=== PATIENT | male | born 1950 | race Caucasian/White ===

== ENCOUNTER → 2016-05-16 | Outpatient (CLI) | payer OTHER | END | disposition home or self-care (01) | LOC: GMAH 11:33 | PROVIDERS: ATTEND Family Medicine | DX: Z00.00 Encounter for general adult medical examination without abnormal findings (principal); Z12.5 Encounter for screening for malignant neoplasm of prostate ==

== ENCOUNTER → 2017-03-15 | Outpatient (CLI) | payer MEDICARE ==
--- NOTE | 2017-03-18 11:49 | CT ---
EXAM DESCRIPTION: Abdoment/Pelvis w/o Contrast CLINICAL HISTORY: 66 years Male, DIARRHEA COMPARISON: None. TECHNIQUE: Transaxial images were obtained without intravenous or oral contrast media. Sagittal and coronal reconstruction was performed.This exam was performed according to our departmental dose-optimization program, which includes automated exposure control, adjustment of the mA and/or kV according to patient size and/or use of iterative reconstruction technique. FINDINGS: Multiple pulmonary nodules are observed in the lung bases. The largest nodule is seen in the lingula measuring 1.49 cm in diameter. No pleural fluid is seen. Multiple low-density foci are observed throughout both lobes of liver consistent with metastatic disease. The liver is enlarged. The spleen is normal in appearance. No adrenal masses are detected. The pancreas is normal in appearance. A probable cyst is observed in the lower pole of the patient's left kidney. No hydronephrosis solid mass or calcification is detected. The appendix is identified and is normal in appearance. The exam does reveal thickening of the sigmoid colon. With metastatic disease this is worrisome for the possibility of neoplasm. No free fluid is observed in the pelvis. No inguinal region abnormality is detected. Mild degenerative changes are observed in the lumbar spine. IMPRESSION: 1. Multiple pulmonary nodules are observed in the lung bases consistent with metastatic disease. 2. Low-density foci are observed throughout both lobes the liver consistent with metastatic disease. 3. Diffuse thickening of the sigmoid colon is observed and is worrisome for a primary neoplasm the colon. 4. Probable simple cyst is observed in the lower pole the left kidney. Electronically signed by: Carlos Pretty MD 03/18/2017 11:48 AM RN DOCUMENT IMPROVEMENT SPECIALIST
== END ==
LOC: CT 16:03
PROVIDERS: ATTEND Family Medicine
DX: R19.7 Diarrhea, unspecified (principal); R91.8 Other nonspecific abnormal finding of lung field

== ENCOUNTER → 2017-03-16 | Outpatient (CLI) | payer MEDICARE | LOC: LAB.O 08:06 | PROVIDERS: ATTEND Family Medicine | DX: R19.7 Diarrhea, unspecified (principal) ==

== ENCOUNTER → 2017-04-07 | Outpatient (CLI) | payer MEDICARE | LOC: LAB.O 15:12 | PROVIDERS: ATTEND Surgery | DX: C18.7 Malignant neoplasm of sigmoid colon (principal) ==

== ENCOUNTER 2017-04-10 07:24 | Day surgery (SDC) | payer MEDICARE ==
[~2017-04-10 07:24] MED LIST: LACTATED RINGERS 1,000 ML ONE; LIDOCAINE 1% 10 ML VIAL INJ ONE; PROPOFOL 200 MG/20 ML VIAL IV ONE; SODIUM CHL 0.9% 100ML MINI-BAG 100 ML IVPB ONE; ceFAZolin SODIUM 1 GM VIAL ONE
[2017-04-10] MEDS ORDERED: SODIUM BICARBONATE VIAL 50 MEQ/50 ML VIAL ONE (07:55)
[2017-04-10] MEDS ORDERED: LIDOCAINE 1% 10 ML VIAL INJ ONE (07:55)
[2017-04-10] MEDS ORDERED: SODIUM CHLORIDE 0.9% 50 ML VIAL ONE (07:56)
[2017-04-10] MEDS: HEPARIN SODIUM 100 U/ML 5 ML SYG IV ONE ×2 (09:17→09:57)
[2017-04-10 11:07] VITALS: BP 163/88; TEMP 98.4; O2SAT 98
--- NOTE | 2017-04-10 11:30 | OP ---
DATE OF PROCEDURE: 04/10/17 PREOPERATIVE DIAGNOSIS: 1. Metastatic carcinoma of the colon. POSTOPERATIVE DIAGNOSIS: 1. Metastatic carcinoma of the colon. PROCEDURE: 1. Insertion of right subclavian venous access port using fluoroscopy. SURGEON: Tyron Pedroza MD. ENGINEER BYPRODUCT: None. ANESTHESIA: Local infiltration of 1% lidocaine with bicarb and IV sedation. INDICATION: The patient is a 66-year-old male who developed some GI symptomatology that did not resolve. He eventually underwent CT which revealed what was consistent with metastatic disease in his liver, his lungs and a lesion in the sigmoid colon. He has since undergone a liver biopsy and a colonoscopy. He is now known to have metastatic carcinoma of the colon. He is to begin chemotherapy today with Dr. Morgan in [place]. He was brought to the Surgical Suite today for insertion of a right subclavian venous access port to be left accessed after the risks, benefits and alternatives were discussed and accepted in my office. FINDINGS: C-arm initially revealed the guidewire in the neck. It was backed up using fluoroscopy and then advanced into the superior vena cava. The post catheter placement films revealed the catheter in the superior vena cava. No other pathology was identified. PROCEDURE: After the patient was brought to the surgical kayla and placed in the supine position, he was prepped and draped in the usual sterile manner. Surgical time-out was taken. After sedation was performed, local infiltration was performed in the infraclavicular area and a 22-gauge needle was introduced under the clavicle and venous blood was identified. A stab wound was made with a 15 blade. At this point, the 18-gauge thin wall needle was introduced in the same direction under the clavicle. Venous blood was identified. The guidewire was introduced. The needle was removed. At this time, a towel was placed over the field. The fluoroscopy unit was used to identify that the guidewire was in fact in the neck, so under fluoroscopic guidance, the guidewire was backed out incrementally. Eventually, it was advanced into the superior vena cava with little difficulty. At this point, the C-arm was removed and the towel was removed. A port pocket was performed in the usual manner with local infiltration of anesthesia, a sharp knife and then electrocautery and blunt dissection. The catheter was then tunneled from the insertion site to the introduction site and left on a sterile towel. The port was then sutured in place into the port pocket with interrupted 3-0 Prolene sutures. When this was done, the subcutaneous tissue of the port pocket was reapproximated with two 3- 0 Vicryl simple sutures. At this point, the catheter was cut to appropriate length. The dilator introducer was introduced over the guidewire and then the dilator and guidewire were removed. The catheter was introduced easily through the introducer and then in the usual manner the introducer was removed. At this point, the port was accessed with a 22-gauge 90 degree butterfly, 3/4 inches. It was first easily aspirated and then flushed with heparinized saline followed by heplock. It was turned off and capped. At this point, the skin was approximated with interrupted 4-0 Vicryl subcuticular sutures, benzoin and Steri-Strips. A sterile pressure dressing was applied with Tegaderm. The patient tolerated the procedure well and was taken back to the Ambulatory Unit in stable condition. Estimated blood loss was less than 50 mL. A stat portable chest x-ray was pending. #[id number] [facility]
--- NOTE | 2017-04-10 12:31 | RAD ---
EXAM DESCRIPTION: Chest,1 View CLINICAL HISTORY: 66 years Male, post op port COMPARISON: None. TECHNIQUE: Inspiratory and expiratory frontal x-ray views of the chest. FINDINGS: Heart size is normal with normal pulmonary vascularity. Patchy increased density is seen in the lingular region along the left heart margin which could be minimal infiltrate or volume loss. No pulmonary mass or worrisome nodule. No pneumothorax or pleural effusion. Port-A-Cath is present on the right with tip in the region of the lower superior vena cava. Bones are unremarkable. IMPRESSION: Minimal discoid atelectasis in the lingula. Otherwise clear chest. Electronically signed by: Jg Reza MD 04/10/2017 12:30 PM INCLINOMETER TESTER
[2017-04-12] MEDS ORDERED: HEPARIN SODIUM 100 U/ML 5 ML SYG IV ONE (15:19)
== END 2017-04-10 11:00 | disposition home or self-care (01) ==
LOC: TXRM 07:24 → AMB 07:24 → TXRM 11:00 → AMB 11:00 → EDSTATUS 15:03
PROVIDERS: ATTEND Surgery
DX: C78.5 Secondary malignant neoplasm of large intestine and rectum (principal); C78.7 Secondary malignant neoplasm of liver and intrahepatic bile duct; C78.00 Secondary malignant neoplasm of unspecified lung; I10 Essential (primary) hypertension; R00.1 Bradycardia, unspecified; Z79.899 Other long term (current) drug therapy
CPT/HCPCS: 00532; 36561; 71045; 76000; A4216; C1788; J0690; J1642; J3490; J7050; J7120

== ENCOUNTER 2019-01-24 05:27 | Day surgery (SDC) | payer MEDICARE ==
[2019-01-24] MEDS ORDERED: METOCLOPRAMIDE HCL INJ 10 MG/2 ML VIAL ONE (07:00)
[2019-01-24] MEDS ORDERED: DEXAMETHASONE INJ 10 MG/ML VIAL ONE (07:00)
[2019-01-24] MEDS ORDERED: PROPOFOL 200 MG/20 ML VIAL IV ONE (07:00)
[2019-01-24] MEDS ORDERED: LIDOCAINE 1% 10 ML VIAL INJ ONE (07:00)
[2019-01-24] MEDS ORDERED: SODIUM CHL 0.9% 100ML MINI-BAG 100 ML IVPB ONE (07:01)
[2019-01-24] MEDS ORDERED: LACTATED RINGERS 1,000 ML ONE (07:01)
[2019-01-24] MEDS ORDERED: ceFAZolin SODIUM 1 GM VIAL ONE (07:01)
[2019-01-24] MEDS ORDERED: LACTATED RINGERS 1,000 ML IVS ONE (08:55)
[2019-01-24] MEDS ORDERED: MIDAZOLAM INJ 2 MG/2 ML VIAL ONE (09:07)
[2019-01-24] MEDS ORDERED: raNITIdine HCL INJ 25 MG/ML VIAL ONE (09:18)
[2019-01-24] MEDS ORDERED: KETAMINE HCL 100 MG/ML VIAL ONE (10:05)
[2019-01-24] MEDS ORDERED: fentaNYL CITRATE INJ 50 MCG/ML AMP ONE (10:05)
[2019-01-24] MEDS ORDERED: BUPIVACAINE 0.5% W/EPI 30 ML VIAL INJ ONE (10:08)
[2019-01-24 10:38] VITALS: O2SAT 99
[2019-01-24] MEDS ORDERED: BUPIVACAINE 0.25% W/EPI 50 ML VIAL INJ ONE (11:23)
[2019-01-24] MEDS ORDERED: LACTATED RINGERS 1,000 ML BAG IVS ONE (11:24)
--- NOTE | 2019-01-24 11:40 | OP ---
DATE OF PROCEDURE: 01/24/19 PREOPERATIVE DIAGNOSIS: 1. Right inguinal hernia. POSTOPERATIVE DIAGNOSIS: 1. Right inguinal hernia. PROCEDURE: 1. Repair of right inguinal hernia with PHS mesh. 2. Removal of large 7 cm retroperitoneal tumor. 3. Ilioinguinal nerve block for postoperative pain control. SURGEON: Zohaib Noriega MD. ANESTHESIA: General. FINDINGS: There was a large retroperitoneal tumor/cord lipoma and a large direct type hernia, however, lateral to the epigastric vessels, not associated with a large sac. This was reduced. The mesh was placed without difficulty. COMPLICATIONS: None. ESTIMATED BLOOD LOSS: Minimal. SPECIMEN: Lipoma. PLAN: Discharge. INDICATION: As stated. PROCEDURE: General anesthesia was induced. He was prepped and draped in sterile fashion. 0.5% Marcaine with epinephrine was used at the incision site and based on the ASIS. 3 mL were injected to perform an ilioinguinal nerve block. The incision was made. Subcutaneous tissue was taken down. The external oblique aponeurosis was identified. A small alejandra was made. It was opened along its fibers, opening the external ring. Dissecting out, actually the cord was large, fatty, scarred mass on it. Eventually with dissection, we got this off. It went down to be a large retroperitoneal tumor. This was ligated at its base and reduced. The larger hernia bulk was again lateral to the epigastric vessels, but mostly fatty, not associated with a true peritoneal sac, so this was reduced. We got into the preperitoneal space with [employer] keeping the epigastric vessels anterior. Three moist Raytec sponges and finger sweep was used to create the preperitoneal plane. The large PHS mesh was then placed and laid out nice and flat in the preperitoneal plane. The cut was made, wrapped around the cord, non-stricturing and secured at the shelving edge. It was then secured at the tubercle. We put local. The nerve was not definitely identified here. I think it was associated with the cord, but definitely no evidence of nerve injury and as we closed the external oblique, did not incorporate any structure that appeared to be nerve. The mesh was lying flat on the floor as we did close the external oblique with a running 2-0 Vicryl. There was no bleeding. The wound was closed in two additional layers and Steri-Strips applied. The patient was awakened and taken to Recovery to be discharged. #[id number] cc: Denis Valdez MD [facility]
[2019-01-24] MEDS ORDERED: ACETAMINOPHEN W/COD #3 TAB 1 EA TAB ONE (12:41)
[2019-01-24 13:21] VITALS: BP 169/90; TEMP 97.7
== END 2019-01-24 13:15 | disposition home or self-care (01) ==
LOC: AMB 05:27
PROVIDERS: ATTEND Surgery
DX: K40.90 Unilateral inguinal hernia, without obstruction or gangrene, not specified as recurrent (principal); D17.6 Benign lipomatous neoplasm of spermatic cord; G89.18 Other acute postprocedural pain; I10 Essential (primary) hypertension; E78.2 Mixed hyperlipidemia; E78.00 Pure hypercholesterolemia, unspecified; K59.00 Constipation, unspecified; Z85.038 Personal history of other malignant neoplasm of large intestine; Z79.899 Other long term (current) drug therapy
CPT/HCPCS: 00830; 49505; 55520; 64450; 88304; J0690; J1100; J2250; J2765; J2780; J3010; J3490; J7050; J7120

== ENCOUNTER 2019-01-28 05:11 | Day surgery (SDC) | payer MEDICARE ==
[2019-01-28] MEDS ORDERED: MIDAZOLAM INJ 2 MG/2 ML VIAL ONE ×2 (11:09→11:17)
[2019-01-28] MEDS ORDERED: fentaNYL CITRATE INJ 50 MCG/ML AMP ONE (11:09)
[2019-01-28] MEDS ORDERED: PROPARACAINE 0.5% OPHTH SOL 15 ML BTTL RIGHT_EYE ONE (11:10)
[2019-01-28] MEDS ORDERED: LIDOCAINE 1% MPF 2 ML VIAL INJ ONE ×2 (11:16→11:23)
[2019-01-28] MEDS ORDERED: BRIMONIDINE 0.2% OPHTH DROPS RIGHT_EYE ONE ×2 (11:17→11:31)
[2019-01-28] MEDS ORDERED: MOXIFLOXACIN HCL (OPHTH) 1 DROP DROPS RIGHT_EYE ONE ×2 (11:17→11:31)
[2019-01-28] MEDS ORDERED: TOBRAMYCIN SULF 0.3 % OPHT SOL 1 DROP RIGHT_EYE ONE ×2 (11:17→11:31)
[2019-01-28] MEDS ORDERED: DEXAMETHASONE 0.1% OPHTH SOL 1 DROP RIGHT_EYE ONE ×2 (11:17→11:31)
== END 2019-01-28 12:05 | disposition home or self-care (01) ==
LOC: AMB 05:11
PROVIDERS: ATTEND Ophthalmology
DX: H25.11 Age-related nuclear cataract, right eye (principal); I10 Essential (primary) hypertension; Z79.899 Other long term (current) drug therapy
CPT/HCPCS: 00142; 66984; J2250; J3010

== ENCOUNTER 2020-03-06 04:20 | Emergency (ER) | payer MEDICARE ==
[2020-03-06] MEDS ORDERED: SODIUM CHLORIDE 0.9% (FLUSH) 10 ML SYG IV PRN (04:37)
[2020-03-06] MEDS ORDERED: ONDANSETRON INJ 4 MG/2 ML VIAL IV ONE ×2 (04:37→06:28)
[2020-03-06] MEDS ORDERED: PANTOPRAZOLE INJECTION 80 MG in SODIUM CHLORIDE 0.9% 100ML 80 ML IVPB ONE (04:39)
[2020-03-06] MEDS ORDERED: SODIUM CHLORIDE 0.9% 1000ML 1,000 ML IVS ONE (04:40)
--- NOTE | 2020-03-06 06:28 | ED.PDOC ---
History of Present Illness - General Chief Complaint: GI Problem Stated Complaint: rectal bleeding Time Seen by Provider: 03/06/20 04:36 Information Source: patient, family Exam Limitations: no limitations Additional Information: The patient is a 69-year-old male with colorectal cancer presents to the emergency department with complaints of gross red blood per rectum. States that it started about 3:30 AM this morning. States that he has.Planes of mild abdominal pain Never had this before. His last chemotherapy was 12 days ago.She complains of mild abdominal pain, complains of nausea Review of Systems - Review of Systems Constitutional: Denies: chills, fever, malaise EENTM: Denies: blurred vision, tearing Respiratory: Denies: cough, short of breath, stridor Cardiology: Denies: chest pain, palpitations, syncope Gastrointestinal/Abdominal: States: abdominal pain, nausea. Denies: diarrhea, other - rectal bleeding Musculoskeletal: Denies: back pain, gout Skin: Denies: change in color, dryness, lesions Neurological: States: weakness. Denies: depressed, emotional problems, pre- existing deficit, seizure Endocrine: Denies: flushing, intolerance to cold Past Medical History (General) - Patient Medical History Hx Asthma: No Hx Congestive Heart Failure: No Hx Diabetes: No Hx MRSA: No - Vaccination History Hx Tetanus, Diphtheria Vaccination: Yes Hx Influenza Vaccination: No Hx Pneumococcal Vaccination: No Immunizations Up to Date: Yes - Social History Hx Tobacco Use: No Hx Alcohol Use: No Hx Substance Use: No Hx Substance Use Treatment: No Hx Depression: No Family Medical History - Family History Father Living Status: Physical Exam - Physical Exam General Appearance: Alert, Comfortable Eyes, Ears, Nose, Throat Exam: normal ENT inspection, pharynx normal Neck: supple, normal inspection Respiratory: chest non-tender, lungs clear, normal breath sounds, no respiratory distress, no accessory muscle use Cardiovascular/Chest: normal peripheral pulses, regular rate, rhythm, no edema, no gallop, no JVD Peripheral Pulses: No deficit, 2+ Gastrointestinal/Abdominal: soft, tenderness Rectal Exam: normal rectal tone, blood streaked stool, other - rectal lesion palpated Extremity: normal range of motion, non-tender, normal inspection Neurologic: braid folder II-XII nml as tested, no motor/sensory deficits, alert, normal mood/affect, oriented x 3 Skin Exam: normal color, warm/dry Lymphatic: no adenopathy Special Observations: Smiling Progress - Progress Progress: 69-year-old male with rectal bleeding. While in the ER he has over 500 cc of blood in stools in the commode. The patient and his states that he had double of that at home . Hypodermically stable. Hemoglobin 12 at presentation recheck hemoglobin pending .2 units crossed matched. Talk with the patient's oncology group, oncologist on-call Dr. Morgan. Stated admit the patient and will consult if beds available at facility. Abdomen and Pelvis Without and With Intravenous Contrast CLINICAL HISTORY: The patient is 69 years old and is Male; bleeding / pain TECHNIQUE: Axial computed tomography images of the abdomen and pelvis without and with intravenous contrast. Sagittal and coronal reformatted images were created and reviewed. This CT exam was performed using one or more of the following dose reduction techniques: automated exposure control, adjustment of the mA and/or kV according to patient size, and/or use of iterative reconstruction technique. COMPARISON: No relevant prior studies available. FINDINGS: Lung bases: Numerous nodules in the lungs bilaterally measuring up to 1.5 cm. ABDOMEN: Liver: Numerous hypoattenuating masses with coarse calcifications throughout the liver. Nodular cirrhotic appearance to the liver. Gallbladder and bile ducts: Unremarkable. No calcified stones. No ductal dilation. Pancreas: Metallic density in the region of the pancreas. Correlate with surgical history. No ductal dilation. Spleen: Splenomegaly. Adrenals: Unremarkable. No mass. Kidneys and ureters: Unremarkable. No solid mass. No obstructing stones. No hydronephrosis. Stomach and bowel: Postsurgical changes in the bowel. Dilated loops of small bowel measuring up to 2.8 cm. No mucosal thickening. PELVIS: Appendix: No findings to suggest acute appendicitis. Bladder: Unremarkable. No mass. No stones. Reproductive: Unremarkable as visualized. ABDOMEN and PELVIS: Intraperitoneal space: Unremarkable. No free air. No significant fluid collection. Bones/joints: No acute fracture. No dislocation. Soft tissues: Unremarkable. Vasculature: Unremarkable. No abdominal aortic aneurysm. Lymph nodes: Unremarkable. No enlarged lymph nodes. IMPRESSION: 1. Numerous nodules in the lungs bilaterally measuring up to 1.5 cm. Findings are concerning for metastatic disease. 2. Numerous hypoattenuating masses with coarse calcifications throughout the liver. Findings are suggestive of metastatic disease. 3. Nodular cirrhotic appearance to the liver. 4. Splenomegaly. 5. Postsurgical changes in the bowel. Correlate with history of colectomy. 6. Dilated loops of small bowel measuring up to 2.8 cm. Electronically signed by: Mario Suazo MD 03/06/2020 6:39 AM SPOT MAN EXAM: XR Chest, 2 Views CLINICAL HISTORY: The patient is 69 years old and is Male; bleeding TECHNIQUE: Frontal and lateral views of the chest. COMPARISON: Chest radiograph April 10, 2017 FINDINGS: LUNGS: Suggestion of subtle nodular opacities specifically throughout the right lung and to a lesser extent the left lung are present. PLEURAL SPACE: Unremarkable. No pneumothorax. HEART: Unremarkable. No cardiomegaly. MEDIASTINUM: Unremarkable. BONES/JOINTS: Unremarkable. TUBES, LINES AND DEVICES: A right chest port is present with the tip in the region of the SVC. IMPRESSION: Findings suggest pulmonary nodules throughout the lungs. Further evaluation with a CT may be useful. Electronically signed by: Sade Marks MD 03/06/2020 6:27 AM SPOT MAN - EKG/XRAY/CT EKG: Sinus Comments: 4: 49 , rate 82, no st elevation , no PVC, NO PAC , SD QRS QT within normal - Additional EKG/XRAY/Consults Time Called: 05:10 - admit to hospitalst will consult if any beds present Consult/PCP: DR Regulo Morgan , oncologist oncall at the patients oncologist group Departure - Departure Clinical Impression: Gastrointestinal bleed, Colon cancer metastasized to lung Disposition: Transfer to Hospital Departure Forms: ED Discharge - Pt. Copy, Patient Portal Self Enrollment Referrals: Denis Valdez MD [Primary Care Provider] - 1-2 Weeks Home Medications: Ambulatory Orders Amlodipine Besylate 5 mg PO DAILY 04/10/17 Atorvastatin Calcium [Lipitor] 40 mg PO DAILY 04/10/17 Benazepril HCl [Benazepril Hydrochloride] 20 mg PO DAILY 04/10/17 Valsartan-Hydrochlorothiazide [Valsartan/Hydrochlorothia 160-12.5 mg] 1 tab PO DAILY 04/10/17 Famotidine [Pepcid] 20 mg PO DAILY 01/15/19 Allopurinol [Zyloprim] 1 tablet PO DAILY 01/22/19 Additional Instructions: Transferring the patient to [facility] and low back. Dr Chi accepted the patient.
--- NOTE | 2020-03-06 06:41 | CT ---
EXAM: CT Abdomen and Pelvis Without and With Intravenous Contrast CLINICAL HISTORY: The patient is 69 years old and is Male; bleeding / pain TECHNIQUE: Axial computed tomography images of the abdomen and pelvis without and with intravenous contrast. Sagittal and coronal reformatted images were created and reviewed. This CT exam was performed using one or more of the following dose reduction techniques: automated exposure control, adjustment of the mA and/or kV according to patient size, and/or use of iterative reconstruction technique. COMPARISON: No relevant prior studies available. FINDINGS: Lung bases: Numerous nodules in the lungs bilaterally measuring up to 1.5 cm. ABDOMEN: Liver: Numerous hypoattenuating masses with coarse calcifications throughout the liver. Nodular cirrhotic appearance to the liver. Gallbladder and bile ducts: Unremarkable. No calcified stones. No ductal dilation. Pancreas: Metallic density in the region of the pancreas. Correlate with surgical history. No ductal dilation. Spleen: Splenomegaly. Adrenals: Unremarkable. No mass. Kidneys and ureters: Unremarkable. No solid mass. No obstructing stones. No hydronephrosis. Stomach and bowel: Postsurgical changes in the bowel. Dilated loops of small bowel measuring up to 2.8 cm. No mucosal thickening. PELVIS: Appendix: No findings to suggest acute appendicitis. Bladder: Unremarkable. No mass. No stones. Reproductive: Unremarkable as visualized. ABDOMEN and PELVIS: Intraperitoneal space: Unremarkable. No free air. No significant fluid collection. Bones/joints: No acute fracture. No dislocation. Soft tissues: Unremarkable. Vasculature: Unremarkable. No abdominal aortic aneurysm. Lymph nodes: Unremarkable. No enlarged lymph nodes. IMPRESSION: 1. Numerous nodules in the lungs bilaterally measuring up to 1.5 cm. Findings are concerning for metastatic disease. 2. Numerous hypoattenuating masses with coarse calcifications throughout the liver. Findings are suggestive of metastatic disease. 3. Nodular cirrhotic appearance to the liver. 4. Splenomegaly. 5. Postsurgical changes in the bowel. Correlate with history of colectomy. 6. Dilated loops of small bowel measuring up to 2.8 cm. Electronically signed by: Mario Suazo MD 03/06/2020 6:39 AM [facility]
[2020-03-06 08:38] VITALS: BP 129/74; TEMP 98.1; O2SAT 98
== END 2020-03-06 08:35 | disposition short-term general hospital (02) ==
LOC: ER 04:20
DX: K62.5 Hemorrhage of anus and rectum (principal); C19 Malignant neoplasm of rectosigmoid junction; C78.00 Secondary malignant neoplasm of unspecified lung; R10.9 Unspecified abdominal pain; R11.0 Nausea; Z92.21 Personal history of antineoplastic chemotherapy; Z20.822 Contact with and (suspected) exposure to COVID-19
CPT/HCPCS: 36415; 71046; 74178; 80048; 80076; 82150; 82270; 83605; 83690; 84484; 85014; 85018; 85025; 85610; 85730; 86922; 87635; 93005; A4216; J2405; J7030; J7050